=== PATIENT | female | born 1950 | race Caucasian/White ===

== ENCOUNTER → 2017-02-04 | Outpatient (CLI) | payer MEDICARE ==
[2017-02-04 12:34] VITALS: BP 160/90; TEMP 99.2; BMI 35.2
[2017-02-04 14:39] LABS: CH 30.5; HCT 35.9 % (34.0-46.0); HDW 2.52; HGB 11.9 gm/dL (11.4-16.0); MCH 31.7 pg (25.0-35.0); Mean Platelet Volume 7.2; RBC 3.74 m/uL (3.80-5.40); RDW 13.8 % (11.5-15.5); WBC 8.3 k/uL (3.8-10.6)
[2017-02-04 14:53] LABS: ALT 38 U/L (9-52); AST 21 U/L (14-36); Alkaline Phosphatase 93 U/L (38-126); Anion Gap 9 mmol/L; Blood Urea Nitrogen 22 mg/dL (7-17); Calcium 9.5 mg/dL (8.4-10.2); Carbon Dioxide 27 mmol/L (22-30); Chloride 108 mmol/L (98-107); Glucose 91 mg/dL (74-99); Iron 49 ug/dL (37-170); Non-African American GFR(MDRD) 55 (>60 ml/min/1.73 sqM); Potassium 4.7 mmol/L (3.5-5.1); Sodium 144 mmol/L (137-145); Total Bilirubin 0.4 mg/dL (0.2-1.3); Total Protein 6.7 g/dL (6.3-8.2)
[2017-02-04 15:03] LABS: % Iron Saturation 20.3 % (20-50); Total Iron Binding Capacity 241 ug/dL (265-497)
[2017-02-04 15:37] VITALS: PULSE 92; RESP 14
[2017-02-04 15:59] LABS: Hemoglobin A1C 6.2 % (4.2-6.1)
--- NOTE | 2017-03-04 22:07 | P.PN ---
Progress Note - Text DATE OF CONSULTATION: 02/04/2017 CHIEF COMPLAINT: Initial bariatric assessment. HISTORY OF PRESENT ILLNESS: Una Vasquez is a 66-year-old female who is here for initial bariatric assessment. Her height is 5 feet 4 inches, her ideal body weight is 144 pounds. Initial weight is 205 pounds. She is 61 pounds overweight. Body mass index is 35.2. Una presents with her who is extremely apprehensive about any surgery. She reports having multiple abdominal surgeries including diarrhea. She takes medications occasionally for reflux disease. She is actually evaluating for weight loss procedures. Her additional comorbidities also include hypertension for which she is on several medications as well. PAST MEDICAL HISTORY: 1. Depression. 2. Insomnia. 3. Congestive heart failure. 4. Hypertensive heart disease. 5. Vitamin D deficiency. 6. Hypothyroidism. 7. Osteoarthritis of the lower back. 8. Rheumatoid arthritis. 9. Hyperlipidemia. 10. 10. Gastroesophageal reflux disease. 11. Fibromyalgia. 12. Osteoarthritis. 13. Obstructive sleep apnea. 14. Restless leg syndrome. PAST SURGICAL HISTORY: 1. Right hand surgery for trigger finger. 2. Left knee replacement. 3. Right knee replacement. 4. Breast mastectomy. 5. Bowel resection. 6. Cholecystectomy. 7. Hysterectomy. 8. Tubal ligation. MEDICATIONS: 1. Melatonin. 2. Aspirin. 3. Cymbalta. 4. Potassium carbonate. 5. Ambien. 6. Vicodin. 7. Lasix. 8. Cozaar. 9. Vitamin D. 10. Synthroid. 11. Celebrex. 12. Coreg. 13. Mirapex. 14. Lipitor. 15. Zantac. 16. Calcium. 17. Dulcolax. 18. Cinnamon. ALLERGIES: 1. Adhesive tape. 2. Compazine. 3. Tetanus. 4. Reglan. SOCIAL HISTORY: Lifelong nontobacco user. is present during evaluation. FAMILY HISTORY: Pertinent for heart disease. REVIEW OF SYSTEMS: CONSTITUTIONAL: [place] body weight for 5'4" frame 144 pounds. Present weight 205 pounds. She is 61 pounds overweight. Body mass is 35.2. HEENT: No troubles with vision or hearing. No reports of dysphagia. ENDOCRINE: Denies any diabetes. She has hypothyroidism. RESPIRATORY: No recent pneumonia. Daytime somnolence. She has not undergone sleep apnea assessment. CARDIOVASCULAR: History of congestive heart failure and hypertensive heart disease. GASTROINTESTINAL: History of gastroesophageal reflux disease. Also, history of diarrhea and bowel obstruction. MUSCULOSKELETAL: Has osteoarthritis including fibromyalgia. NEURO: No report of stroke or seizure disorder. PSYCH: History of depression. History of anxiety. HEMATOLOGIC: No reports of DVTs. PHYSICAL EXAM: VITAL SIGNS: 98.2, 92, 14, 150/90, 5 foot 4 inches, 205 pounds. Body mass is 35.2. GENERAL: Well-developed female in no acute distress. HEENT: No sclerae icterus. Extraocular muscles grossly intact. Moist mucosa. NECK: Supple without lymphadenopathy. CHEST: Nonlabored respirations with equal bilateral excursions. CARDIOVASCULAR: Regular rate and rhythm. ABDOMEN: Soft, nontender, nondistended. MUSCULOSKELETAL: No clubbing, cyanosis, or edema. NEURO: No focal or lateralizing signs. PSYCH: Appropriate affect. Alert and oriented to person, place, and time. LABS: White count normal at 8.3. Hemoglobin 11.9. Chloride elevated at 108. BUN elevated at 22. Hemoglobin A1c elevated at 6.2. Total iron-binding capacity elevated at 241. ASSESSMENT: 1. Morbid obesity due to excess calories. 2. Body mass index of 35.2. 3. Congestive heart failure, hypertensive heart disease. 4. Obstructive sleep apnea. 5. Osteoarthritis of the bilateral knees, end stage. 6. Hyperlipidemia. 7. Hypothyroidism. 8. Fibromyalgia. 9. Previous history of breast cancer. 10. Previous history of bowel obstruction. 11. Anxiety. PLAN: 1. I have gone over risks and benefits of surgical intervention; however, her had actually dominated the conversation for which he is against any bariatric procedures. 2. I did discuss options for weight loss can be either medical or surgical. Either of which is truly up to her decision. 3. She has completed bariatric metabolic panel. 4. She has elected for weight loss management on her own. She is aware that should her body mass index drop below a BMI of 35 that any future procedure may be compromised. 5. She may follow up as needed. ADDENDUM: Hemoglobin A1c was elevated at 6.2 consistent with diabetes, insulin resistance. Would recommend treatment using diet. Thank you for this kind consultation.
== END | disposition home or self-care (01) ==
LOC: BARWHC3 10:42
PROVIDERS: ATTEND Surgery Plastic and Reconstructive Surgery
DX: Z01.818 Encounter for other preprocedural examination (principal); E66.01 Morbid (severe) obesity due to excess calories; Z68.35 Body mass index [BMI] 35.0-35.9, adult; E88.81 Metabolic syndrome and other insulin resistance; D50.8 Other iron deficiency anemias; E44.1 Mild protein-calorie malnutrition; E55.9 Vitamin D deficiency, unspecified; I11.9 Hypertensive heart disease without heart failure; G47.30 Sleep apnea, unspecified
CPT/HCPCS: 84425; 80053; 82728; 83036; 82746; 83540; 83550; 84443; 85027; 82306; G0463; 99201

== ENCOUNTER 2018-07-27 08:03 | Day surgery (SDC) | payer MEDICARE ==
[~2018-07-27 08:03] MED LIST: HEPARIN SODIUM,PORCINE 5,000 UNIT/ML 1 ML VIAL SQ ONE; HYDROmorphone 0.5 MG/0.5 ML SYRINGE IVP PRN; LACTATED RINGERS 1,000 ML IV SCH; ONDANSETRON 4 MG/2 ML VIAL IVP ONE; Pre Op ABX Message 1 EACH MISC MISCELLANE ONE; fentaNYL (PF) 50 MCG/ML 2 ML AMP IV PRN
[2018-07-27 12:57] VITALS: RESP 16; TEMP 97
[2018-07-27] MEDS ORDERED: LIDOCAINE 1% 20 ML VIAL (10MG/ML) FOR IV START INTRADERMA ONE (13:15)
[2018-07-27] MEDS ORDERED: DEXAMETHASONE SOD PHOSPHATE 10 MG/ML 1 ML VIAL IV ONE (13:15)
[2018-07-27 13:30] LABS: Glucose,Whole Blood 90 mg/dL (75-99)
[2018-07-27] MEDS: METOPROLOL TARTRATE 5 MG/5 ML VIAL IVP ONE ×2 (13:30→13:55)
[2018-07-27] MEDS ORDERED: MIDAZOLAM 2 MG/2 ML VIAL IV ONE (13:55)
--- NOTE | 2018-07-27 17:09 | P.GSHP ---
History of Present Illness H&P Date: 07/27/18 Chief Complaint: Left flank lipoma This is a 67-year-old female has developed a recurrent left flank lipoma. She presents today for excision. Past Medical History Past Medical History: Cancer, Diabetes Mellitus, Fibromyalgia, Hyperlipidemia, Hypertension, Osteoarthritis (OA), Sleep Apnea/CPAP/BIPAP, Thyroid Disorder Additional Past Medical History / Comment(s): REStlESS LEG syndrome HISTORY OF BREAST CANCER glaucoma History of Any Multi-Drug Resistant Organisms: None Reported Past Surgical History: Breast Surgery, Cholecystectomy, Hysterectomy, Orthopedic Surgery, Tubal Ligation Additional Past Surgical History / Comment(s): right hand surgery trigger finger , left knee replacement 2008 right knee replacement 2014 rt mastectomy 1994 left mastectomy 1988 bowel resection 1990 Past Anesthesia/Blood Transfusion Reactions: No Reported Reaction Past Psychological History: Anxiety Smoking Status: Never smoker Past Alcohol Use History: None Reported Past Drug Use History: None Reported Medications and Allergies Home Medications Medication Instructions Recorded Confirmed Type Aspirin 1 tab PO DAILY 02/04/17 07/27/18 History Atorvastatin [Lipitor] 1 tab PO HS 02/04/17 07/27/18 History Bisacodyl [Dulcolax] 1 tab PO DAILY 02/04/17 07/27/18 History Calcium Carbonate [Calcium] 1 tab PO DAILY 02/04/17 07/27/18 History Carvedilol [Coreg] 1 tab PO BID 02/04/17 07/27/18 History Celecoxib [CeleBREX] 1 tab PO BID 02/04/17 07/27/18 History Cholecalciferol [Vitamin D3] 1 tab PO DIRECTED 02/04/17 07/27/18 History Cinnamon Bark [Cinnamon] 1 tab PO DAILY 02/04/17 07/27/18 History DULoxetine HCL [Cymbalta] 90 mg PO DAILY 02/04/17 07/27/18 History Furosemide [Lasix] 1 tab PO DAILY 02/04/17 07/27/18 History Hydrocodone/Acetaminophen [Vicodin 1 tab PO TID PRN 02/04/17 07/27/18 History Es 7.5-300 mg Tablet] Levothyroxine Sodium [Synthroid] 1 tab PO DAILY 02/04/17 07/27/18 History Losartan [Cozaar] 1 tab PO DAILY 02/04/17 07/27/18 History Potassium Bicarbonate/Cit AC 1 tab PO DAILY 02/04/17 07/27/18 History [Potassium 25 Meq Tablet Eff] Pramipexole [Mirapex] 1 tab PO HS 02/04/17 07/27/18 History Ranitidine HCl [Zantac] 1 tab PO DAILY PRN 02/04/17 07/27/18 History Zolpidem [Ambien] 1 tab PO HS 02/04/17 07/27/18 History metFORMIN HCL [Glucophage] 500 mg PO BID 07/27/18 07/27/18 History Allergies Allergy/AdvReac Type Severity Reaction Status Date / Time adhesive tape Allergy Rash/Hives Verified 07/27/18 12:36 prochlorperazine Allergy Rapid Verified 07/27/18 12:36 [From Compazine] Heart Rate Tetanus Vaccines and Toxoid Allergy Rash/Hives Verified 07/27/18 12:36 meloxicam [From Mobic] AdvReac Nausea Verified 07/27/18 12:36 metoclopramide [From Reglan] AdvReac Unknown Verified 07/27/18 12:36 Surgical - Exam Vital Signs Temp Pulse Resp BP Pulse Ox 97.0 F L 65 16 181/82 98 07/27/18 12:56 07/27/18 12:56 07/27/18 12:56 07/27/18 12:56 07/27/18 12:56 - General well developed, no distress - Eyes PERRL - ENT normal pinna - Neck no masses - Respiratory normal expansion - Cardiovascular Rhythm: regular - Abdomen Abdomen: soft, non tender - Integumentary 3 cm lipoma located in the left flank. There is the old scar on top of the lipoma Assessment and Plan Assessment: 3 cm flank lipoma. We'll perform excision.
[2018-07-27] MEDS ORDERED: LIDOCAINE 1% INJ 10MG/ML (20 ML MDV) ONE (17:24)
[2018-07-27] MEDS ORDERED: MIDAZOLAM 2 MG/2 ML VIAL ONE (17:24)
[2018-07-27] MEDS ORDERED: fentaNYL (PF) 50 MCG/ML 2 ML AMP ONE (17:24)
[2018-07-27] MEDS ORDERED: KETAMINE 10 MG/ML 20 ML VIAL ONE (17:24)
[2018-07-27] MEDS ORDERED: PROPOFOL 10 MG/ML 20 ML VIAL IV ONE (17:24)
[2018-07-27] MEDS ORDERED: BUPIVACAIN-EPI 0.25%-1:200,000 30 ML VIAL SQ ONE (17:41)
--- NOTE | 2018-07-27 17:48 | P.OP ---
Date of Procedure: 07/27/18 Preoperative Diagnosis: Left flank lipoma Postoperative Diagnosis: Left flank lipoma Procedure(s) Performed: Excision of left flank lipoma Anesthesia: VERNELL Surgeon: Jose Juan Estimated Blood Loss (ml): 5 Pathology: other (Left flank lipoma) Condition: stable Disposition: PACU Description of Procedure: Patient's placed on the operative table lateral position. She received IV sedation. Her left leg was prepped and draped in usual sterile fashion. Skin was anesthetized 1% local Xylocaine. The skin was incised with a 15 blade. Then using cautery the lipoma mass was dissected free. Electrocautery was used for hemostasis. The mass measured 3 x 5 cm. The skin was closed interrupted 3- 0 Monocryl suture. Dermabond was applied. She was sent to recovery in stable condition.
[2018-07-27 18:14] VITALS: BP 151/83; PULSE 64
== END 2018-07-27 18:33 | disposition home or self-care (01) ==
LOC: OR 08:03
PROVIDERS: ATTEND Surgery
DX: D17.1 Benign lipomatous neoplasm of skin and subcutaneous tissue of trunk (principal); E11.9 Type 2 diabetes mellitus without complications; M79.7 Fibromyalgia; E78.5 Hyperlipidemia, unspecified; I10 Essential (primary) hypertension; M19.90 Unspecified osteoarthritis, unspecified site; G47.30 Sleep apnea, unspecified; Z99.89 Dependence on other enabling machines and devices; E07.9 Disorder of thyroid, unspecified; Z85.3 Personal history of malignant neoplasm of breast; Z79.84 Long term (current) use of oral hypoglycemic drugs; Z79.82 Long term (current) use of aspirin; Z79.890 Hormone replacement therapy; Z79.899 Other long term (current) drug therapy; Z88.6 Allergy status to analgesic agent; Z88.7 Allergy status to serum and vaccine; Z88.8 Allergy status to other drugs, medicaments and biological substances; Z91.09 Other allergy status, other than to drugs and biological substances
CPT/HCPCS: 11404; 88304; J2250; J1644; J1100; J2405; J2001; J3010; J2704

== ENCOUNTER 2019-07-04 10:14 | Emergency (ER) | payer MEDICARE ==
[2019-07-04 10:19] VITALS: TEMP 98.2
[2019-07-04] MEDS ORDERED: ACETAMINOPHEN TAB 325 MG TAB PO STA (10:29)
--- NOTE | 2019-07-04 10:37 | ED ---
General Adult HPI - General Chief complaint: Head Injury Stated complaint: Fell/head injury Time Seen by Provider: 07/04/19 10:19 Source: patient, RN notes reviewed Mode of arrival: wheelchair Limitations: no limitations - History of Present Illness Initial comments: 68-year-old female with a past medical history of fibromyalgia, diabetes mellitus, hypertension, hyperlipidemia, breast cancer presents to the emergency department for a chief complaint of head injury. Patient states that she was walking over a sidewalk when she tripped over the edge and fell hitting her right side of her head. Patient states she did lose consciousness according to her . Patient states she has some minimal left-sided posterior neck pain. States she does have a headache at this time. Patient takes aspirin daily, no other blood thinners on board. Denies any other injuries. States she had a left shoulder surgery 6 weeks ago but did not fall on or injure that shoulder.Patient has no other complaints at this time including shortness of breath, chest pain, abdominal pain, nausea or vomiting, or visual changes. - Related Data Home Medications Medication Instructions Recorded Confirmed Aspirin 81 mg PO DAILY 02/04/17 07/04/19 Atorvastatin [Lipitor] 20 mg PO HS 02/04/17 07/04/19 Calcium Carbonate [Calcium] 600 mg PO DAILY 02/04/17 07/04/19 Carvedilol [Coreg] 6.25 mg PO BID 02/04/17 07/04/19 Celecoxib [CeleBREX] 200 mg PO BID 02/04/17 07/04/19 Cholecalciferol [Vitamin D3] 1,000 unit PO Q48H 02/04/17 07/04/19 Cinnamon Bark [Cinnamon] 500 mg PO DAILY 02/04/17 07/04/19 DULoxetine HCL [Cymbalta] 60 mg PO DAILY 02/04/17 07/04/19 Furosemide [Lasix] 40 mg PO DAILY 02/04/17 07/04/19 Levothyroxine Sodium [Synthroid] 75 mcg PO DAILY 02/04/17 07/04/19 Ranitidine HCl [Zantac] 75 mg PO DAILY PRN 02/04/17 07/04/19 Zolpidem [Ambien] 5 mg PO HS 02/04/17 07/04/19 metFORMIN HCL [Glucophage] 500 mg PO BID 07/27/18 07/04/19 DULoxetine HCL [Cymbalta] 30 mg PO DAILY 07/04/19 07/04/19 Docusate [Colace] 100 mg PO DAILY 07/04/19 07/04/19 Docusate [Colace] 200 mg PO HS 07/04/19 07/04/19 HYDROcodone/APAP 7.5-325MG [[place] 1 tab PO TID PRN 07/04/19 07/04/19 7.5-325] Losartan Potassium [Cozaar] 100 mg PO DAILY 07/04/19 07/04/19 Multivitamins, Thera [Multivitamin 1 tab PO DAILY 07/04/19 07/04/19 (formulary)] Potassium Chloride [Klor-Con 20] 20 meq PO DAILY 07/04/19 07/04/19 Pramipexole [Mirapex] 1 mg PO HS 07/04/19 07/04/19 Allergies Allergy/AdvReac Type Severity Reaction Status Date / Time adhesive tape Allergy Rash/Hives Verified 07/04/19 11:10 Tetanus Vaccines and Toxoid Allergy Rash/Hives Verified 07/04/19 11:10 meloxicam [From Mobic] AdvReac Nausea Verified 07/04/19 11:10 metoclopramide [From Reglan] AdvReac Rapid Verified 07/04/19 11:10 Heart Rate prochlorperazine AdvReac Rapid Verified 07/04/19 11:10 [From Compazine] Heart Rate Review of Systems ROS Statement: Those systems with pertinent positive or pertinent negative responses have been documented in the HPI. ROS Other: All systems not noted in ROS Statement are negative. Past Medical History Past Medical History: Cancer, Diabetes Mellitus, Fibromyalgia, Hyperlipidemia, Hypertension, Osteoarthritis (OA), Sleep Apnea/CPAP/BIPAP, Thyroid Disorder Additional Past Medical History / Comment(s): REStlESS LEG syndrome,BREAST CANCER glaucoma History of Any Multi-Drug Resistant Organisms: None Reported Past Surgical History: Breast Surgery, Cholecystectomy, Hysterectomy, Orthopedic Surgery, Tubal Ligation Additional Past Surgical History / Comment(s): right hand surgery trigger finger, left knee replacement 2008 right knee replacement 2014 rt mastectomy 1994 left mastectomy 1988 bowel resection 1990, shoulder replacement Past Anesthesia/Blood Transfusion Reactions: No Reported Reaction Past Psychological History: Anxiety Smoking Status: Never smoker Past Alcohol Use History: None Reported Past Drug Use History: None Reported General Exam Limitations: no limitations General appearance: alert, in no apparent distress Head exam: Present: normocephalic. Absent: atraumatic (There is a 3 cm x 3 cm hematoma noted to the right parietal bone. No overlying lacerations or abrasions. Skin is intact.) Eye exam: Present: normal appearance, PERRL, EOMI. Absent: scleral icterus, conjunctival injection, periorbital swelling, other (Negative raccoon sign) ENT exam: Present: normal exam, normal oropharynx, mucous membranes moist, TM's normal bilaterally (Negative hemotympanum), normal external ear exam (Negative Velásquez sign) Neck exam: Present: normal inspection, tenderness (Minimal left sided posterior neck tenderness along the trapezius muscle.), full ROM. Absent: meningismus, lymphadenopathy Respiratory exam: Present: normal lung sounds bilaterally. Absent: respiratory distress, wheezes, rales, rhonchi, stridor Cardiovascular Exam: Present: regular rate, normal rhythm, normal heart sounds. Absent: systolic murmur, diastolic murmur, rubs, gallop, clicks GI/Abdominal exam: Present: soft, normal bowel sounds. Absent: distended, tenderness, guarding, rebound, rigid Neurological exam: Present: alert, oriented X3, CN II-XII intact, normal gait, other (GCS 15) Expanded Patient oriented to: Present: person, place, time Speech: Present: fluid speech Cranial nerves: EOM's Intact: Normal, Tongue Deviation: Normal, Nystagmus: Normal, Facial Sensation: Normal Cerebellar function: Finger to Nose: Normal Upper motor neuron: Pronator Drift: Normal Sensory exam: Upper Extremity Light Touch: Normal, Upper Extremity Pin Prick: Normal, Lower Extremity Light Touch: Normal, Lower Extremity Pin Prick: Normal Motor strength exam: RUE: 5, LUE: 5, RLE: 5, LLE: 5 Eye Response: (4) open spontaneously Motor Response: (6) obeys commands Verbal Response: (5) oriented [place] Total: 15 Psychiatric exam: Present: normal affect, normal mood Course Vital Signs 07/04/19 10:16 Temperature 98.2 F Pulse Rate 79 Respiratory 18 Rate Blood Pressure 174/81 O2 Sat by Pulse 98 Oximetry Medical Decision Making - Medical Decision Making 68-year-old female presents to the emergency department for a chief complaint of head injury. Patient had a mechanical fall where she tripped over the edge of the sidewalk. Patient thinks that she did lose consciousness. Has mild headache on presentation. Patient also has a 3 cm x 3 cm hematoma noted over the right parietal bone. No facial injury. No significant neck pain although some mild left-sided paraspinal tenderness. Otherwise exam is unremarkable. No neurologic deficits. CT brain shows a right lateral scalp hematoma without underlying calvarial fracture or acute intracranial abnormality. CT cervical spine shows no acute fracture or malalignment of the cervical spine. Patient reevaluated, feeling better at this time. Discussed concussion precautions with patient. Discussed returning if she is any other worsening symptoms and following up with primary care. Disposition Clinical Impression: Hematoma of scalp, Head injury Disposition: HOME SELF-CARE Condition: Good Instructions (If sedation given, give patient instructions): Concussion (ED), Head Injury (ED) Additional Instructions: Please take Tylenol for pain. Please follow-up with primary care in 1-2 days. Return to the emergency department if you have any worsening symptoms. Is patient prescribed a controlled substance at d/c from ED?: No Referrals: Nhi Tran MD [Primary Care Provider] - 1-2 days Time of Disposition: 11:34
--- NOTE | 2019-07-04 11:26 | CT ---
EXAMINATION TYPE: CT brain megan wo con DATE OF EXAM: 07/04/2019 COMPARISON: None HISTORY: 68-year-old female pain after Fall/head injury, right side to brick wall. CT DLP: 1453.5 mGycm Automated exposure control for dose reduction was used. Technique: Examination of the head was done in axial plane without intravenous contrast. Coronal and sagittal reconstructions performed. CT of the cervical spine was obtained in axial plane without intravenous injection of contrast mater ial. Coronal and sagittal reformatted images were obtained from the axial views for evaluation of f ractures, spinal alignment and canal. FINDINGS: Head: There is no evidence of acute intracranial hemorrhage, acute ischemic changes, mass, mass-effect, or extra-axial fluid collection. There is no effacement of cerebral sulci or basal subarachnoid cister ns. There is no hydrocephalus. There is no midline shift. Tan-white matter distinction is preserv ed. There is mild to moderate scalp hematoma along the right lateral convexity without underlying calvari al fracture. Normal variation hyperostosis frontalis interna. Benign basal ganglionic calcifications. Either some vascular or pineal gland calcifications are also noted along the line. Mild patchy white matter hypodensities in both cerebral hemispheres. Paranasal sinuses and mastoid air cells well pneumatized. Orbits and globes are intact. Cervical spine: No craniocervical junction abnormality, predental space widening, or prevertebral soft tissue swellin g. Reversal of the normal cervical lordosis but with preserved alignment. Moderate degenerative disc disease from C5 through C7 levels with disc space narrowing, endplate scle rosis and disc osteophyte complex formation. Posterior bulging disc is present at C3-C4 without significant spinal canal stenosis at this level. A ssessment of the spinal canal from C5 and below is limited due to artifact from patient's shoulders. No acute fracture of the cervical spine. Emphysematous change in the visualized upper lungs. Sagittal and coronal reformatted images confirm above findings. COMBINED IMPRESSION: 1. Right lateral scalp hematoma. No underlying calvarial fracture or acute intracranial abnormality s een. 2. Mild to moderate patchy changes of chronic small vessel ischemic disease. 3. No acute fracture or malalignment of the cervical spine. Moderate spondylotic change. 4. COPD in the visualized upper lungs.
[2019-07-04 11:57] VITALS: BP 153/77; PULSE 71; RESP 16
== END 2019-07-04 11:57 | disposition home or self-care (01) ==
LOC: SUPCPDRO 10:14 → EC 10:14
DX: S00.03XA Contusion of scalp, initial encounter (principal); M54.2 Cervicalgia; E11.9 Type 2 diabetes mellitus without complications; E78.5 Hyperlipidemia, unspecified; M79.7 Fibromyalgia; I10 Essential (primary) hypertension; M19.90 Unspecified osteoarthritis, unspecified site; G47.30 Sleep apnea, unspecified; E07.9 Disorder of thyroid, unspecified; F41.9 Anxiety disorder, unspecified; Z79.82 Long term (current) use of aspirin; Z79.899 Other long term (current) drug therapy; Z79.84 Long term (current) use of oral hypoglycemic drugs; Z79.890 Hormone replacement therapy; Z88.7 Allergy status to serum and vaccine; Z91.048 Other nonmedicinal substance allergy status; Z88.8 Allergy status to other drugs, medicaments and biological substances; Z85.3 Personal history of malignant neoplasm of breast; Z96.653 Presence of artificial knee joint, bilateral; Z96.619 Presence of unspecified artificial shoulder joint; Z98.51 Tubal ligation status; Z99.89 Dependence on other enabling machines and devices; W01.198A Fall on same level from slipping, tripping and stumbling with subsequent striking against other object, initial encounter; Y93.01 Activity, walking, marching and hiking; Y92.480 Sidewalk as the place of occurrence of the external cause
CPT/HCPCS: 70450; 72125; 99284